=== PATIENT | male | born 1965 | race Caucasian/White ===

== ENCOUNTER 2020-03-26 04:04 | Observation (INO) ==
[2020-03-26] MEDS ORDERED: ALBUTEROL 2.5 MG/3 ML NEB RESP TX STA (04:48)
[2020-03-26 05:20] LABS: Basophils % 0.4 % (0.0-0.8); Eosinophils % 0.1 % (0.00-10.9); Hematocrit 42.4 VOL% (42.0-52.0); Hemoglobin 13.8 GM/DL (14.0-18.0); Immature Granulocytes % 0.4 %; Immature Granulocytes Absolute 0.04 #; Lymphocytes # 0.4 10*3/uL (1.4-4.0); Mean Corpuscular HGB Conc 32.5 GM/DL (32-36); Mean Corpuscular Volume 90.4 FL (87-102); Mean Platelet Volume 8.4 FL (9.6-12.0); Neutrophils % 93.1 % (38.7-73.9); Platelet Count 320 T/CUMM (130-400); Red Blood Count 4.69 MC/CUMM (3.8-5.5); Red Cell Distribution Width 14.7 % (9.3-17.3); White Blood Count 9.2 T/CUMM (4-12)
[2020-03-26 05:39] LABS: Eosinophils 1 % (0-10); Lymphocytes 7 % (20-55); Segmented Neutrophils 89 % (50-85); Total Cells Counted 100
[2020-03-26 05:40] LABS: Platelet Estimate Adequate
[2020-03-26 05:41] LABS: Microcytosis Slight
[2020-03-26 05:49] LABS: Albumin 3.2 G/DL (3.4-5.0); Bilirubin,Total 0.4 MG/DL (0.2-1.0); Calcium 9.6 MG/DL (8.5-10.1); Osmolality,Calculated 262.7 MOS/KG (273-304); Total Protein 8.7 G/DL (6.4-8.3)
[2020-03-26] MEDS ORDERED: ONDANSETRON 4 MG/2 ML VIAL IV PRN (05:57)
[2020-03-26] MEDS ORDERED: hydrALAZINE 20 MG/1 ML VIAL IV PRN (06:04)
[2020-03-26] MEDS ORDERED: ENOXAPARIN 60 MG/0.6 ML SYRINGE SUBCUT SCH (06:30)
[2020-03-26 07:07] LABS: Risk Ratio 1.57; VLDL CHOLESTEROL 8.4 MG/DL
[2020-03-26] MEDS ORDERED: ASPIRIN EC 325 MG TABLET PO SCH (09:00)
[2020-03-26] MEDS ORDERED: amLODIPine 10 MG TABLET PO SCH (09:00)
[2020-03-26] MEDS ORDERED: ALBUTEROL/IPRATROPIUM 3 ML NEB RESP TX ONE (12:05)
[2020-03-26] MEDS ORDERED: ALPRAZolam 0.25 MG TABLET PO ONE (15:07)
[2020-03-26] MEDS ORDERED: HydrOXYzine PAMOATE 25 MG CAPSULE PO PRN (15:45)
[2020-03-26] MEDS: ALBUTEROL/IPRATROPIUM 3 ML NEB RESP TX PRN ×2 (17:20→21:51)
[2020-03-26 18:45] LABS: Apearance,Urine CLEAR (Clear); Bilirubin,Urine Negative (Negative); Blood, Urine Small mg/dL (Negative); Glucose,Urine (UA) Negative (Negative); Ketones,Urine 5 mg/dL (Negative); Mucus,Urine Occasional /LPF (Occasional); Nitrite,Urine Negative (Negative); Protein,Urine Negative; RBC,Urine 3 /HPF (0-4); Urine Color Yellow (Yellow); Urine Urobilinogen < 2.0 EU/DL (0.2-1.0); WBC,Urine 1 /HPF (0-6)
[2020-03-26] MEDS ORDERED: ATORVASTATIN 20 MG TABLET PO SCH (21:00)
[2020-03-27] MEDS: ALBUTEROL/IPRATROPIUM 3 ML NEB RESP TX PRN ×3 (01:45→20:10)
[2020-03-27] MEDS: ACETAMINOPHEN 325 MG TABLET PO PRN (03:36)
[2020-03-27 08:02] LABS: Basophils % 0.2 % (0.0-0.8); Eosinophils % 0.4 % (0.00-10.9); Hematocrit 42.1 VOL% (42.0-52.0); Hemoglobin 13.5 GM/DL (14.0-18.0); Immature Granulocytes % 0.4 %; Immature Granulocytes Absolute 0.04 #; Lymphocytes # 1.2 10*3/uL (1.4-4.0); Lymphocytes % 11.5 % (21.2-54.2); Mean Corpuscular HGB Conc 32.1 GM/DL (32-36); Mean Corpuscular Volume 90.5 FL (87-102); Mean Platelet Volume 8.9 FL (9.6-12.0); Neutrophils % 75.5 % (38.7-73.9); Platelet Count 356 T/CUMM (130-400); Red Blood Count 4.65 MC/CUMM (3.8-5.5); Red Cell Distribution Width 15.1 % (9.3-17.3); White Blood Count 10.1 T/CUMM (4-12)
[2020-03-27 08:19] LABS: Calcium 9.4 MG/DL (8.5-10.1); Osmolality,Calculated 272.1 MOS/KG (273-304)
[2020-03-27] MEDS: ASPIRIN EC 325 MG TABLET PO SCH (08:38)
[2020-03-27] MEDS: ENOXAPARIN 40 MG/0.4 ML SYRINGE SUBCUT SCH (08:46)
[2020-03-27] MEDS: DILTIAZEM CD 240 MG CAPSULE PO SCH (08:46)
[2020-03-27 09:10] LABS: HIV Antigen/Antibody Result Nonreactive (Nonreactive)
[2020-03-28] MEDS: ALBUTEROL/IPRATROPIUM 3 ML NEB RESP TX PRN (01:52)
[2020-03-28] MEDS: ACETAMINOPHEN 325 MG TABLET PO PRN ×2 (01:58→08:25)
[2020-03-28 07:22] VITALS: BP 105/66
[2020-03-28] MEDS: DILTIAZEM CD 240 MG CAPSULE PO SCH (08:25)
[2020-03-28] MEDS: ASPIRIN EC 325 MG TABLET PO SCH (08:25)
[2020-03-28] MEDS: ENOXAPARIN 40 MG/0.4 ML SYRINGE SUBCUT SCH (08:26)
== END 2020-03-28 10:26 ==
LOC: N.TELEN 04:04 → N.ED 04:04 → N.EDINP 07:05 → INTOOBSV 07:05 → N.TELEN 07:34 → N.EDINP 08:04
PROVIDERS: ADMIT Internal Medicine Geriatric Medicine; ATTEND Internal Medicine Geriatric Medicine